=== PATIENT | male | born 1985 | race Caucasian/White ===

== ENCOUNTER 2024-10-06 04:10 | Emergency (ER) | payer OTHER, SELFPAY ==
[2024-10-06 04:11] VITALS: BP 133/90
[2024-10-06 04:33] LABS: % Basophils 0.5 % (0-2); % Eosinophils 0.8 % (0-6); % Immature Granulocytes 1.4 % (0-0.5); % Monocytes 6.1 % (1.7-9.3); % Neutrophils 67.2 % (42.2-75.2); Absolute Basophils 0.1 10^3/uL (0-0.2); Absolute Eosinophils 0.1 10^3/uL (0-0.7); Absolute Immature Granulocytes 0.2 10^3/uL (0-0.05); Absolute Lymphocytes 3.1 10^3/uL (1.2-3.4); Absolute Monocytes 0.8 10^3/uL (0.1-0.6); Absolute Neutrophils 8.8 10^3/uL (1.4-6.5); Hematocrit 44.6 % (39.0-52.0); Hemoglobin 15.7 g/dL (13.0-18.0); Mean Corp Hgb Conc. 35.2 g/dL (33.0-37.0); Mean Corpuscular Hgb 32.6 pg (27.0-31.0); Mean Corpuscular Volume 92.7 fL (80.0-94.0); Mean Platelet Volume 9.7 fL (7.4-10.4); Nucleated Red Blood Cells % 0 % (-); Platelet Count 348 10^3/uL (130-400); Red Blood Cell Count 4.81 10^6/uL (4.70-6.10); Red Cell Dist. Width 11.9 % (11.5-14.5); White Blood Cell Count 13.1 10^3/uL (4.8-10.8)
[2024-10-06 04:52] LABS: ALT (SGPT) 66 U/L (0-50); AST (SGOT) 32 U/L (17-59); Albumin 5.1 g/dl (3.5-5.0); Alkaline Phosphatase 39 U/L (38-126); Blood Urea Nitrogen 17 mg/dl (9-20); Calcium 9.6 mg/dl (8.4-10.2); Carbon Dioxide 25 mmol/L (22-30); Chloride 102 mmol/L (98-107); Glucose 102 mg/dl (70-99); Potassium 4.3 mmol/L (3.5-5.1); Sodium 140 mmol/L (135-145); Total Protein 7.9 g/dl (6.3-8.2); eGFR > 60.00
[2024-10-06 07:47] VITALS: BP 126/81
--- NOTE | 2024-10-06 08:18 | ED.GENMED ---
History of Present Illness
General
Chief Complaint: Dizziness
Source: patient
Time Seen by Provider: 10/06/24 07:56
History of Present Illness
History of Present Illness:
39-year-old male with no significant past medical history presenting to the emergency department for evaluation of a constant sensation of lightheadedness that has been ongoing for about 2 to 3 weeks, described to be as if he were going from a
sitting to a standing position although notes the symptoms do not seem to worsen when he does move or change position, associated with an intermittent tingling sensation to his bilateral upper extremities. Patient notes that 2 to 3 weeks ago he had
the flu however notes he had the symptoms just prior to onset of his flulike symptoms. Denies any headaches, visual changes, weakness or numbness, chest pain or shortness of breath, abdominal pain, nausea vomiting or diarrhea. Denies any history
of similar. Also denying any vertigo or tinnitus.
Past History
Past History
ED Past Medical History: None
ED Past Surgical History: None
Social History
Tobacco: Smoker
Alcohol: Occasional
Drug: None
Personal: Single
Living: with family
Employment: Employed
Review of Systems
Review of Systems
All Other Systems: ROS reviewed and negative except as documented in HPI and ROS
Phy Exam
Physical Exam
Physical Exam:
GENERAL: Alert , in no apparent distress
HEAD: Normocephalic atraumatic
EYE: conjunctiva clear
NECK: Supple
ENT: o/p clr, mmm.
CARDIAC: Regular rate and rhythm, no murmur
LUNGS: Clear breath sounds bilaterally, no acute respiratory distress, no wheezes/rales/rhonchi
NEUROLOGICAL: Alert and oriented
SKIN: Warm and dry, skin intact.
MUSCULOSKELETAL: well perfused.
PSYCH: Normal and appropriate interaction.
Scores
Heart Failure Risk
Heart Failure Risk Score: Not Applicable
Heart Score for Chest Pain Patients
STEMI patient?: Not applicable
Withdrawal Assessment of Alcohol
Withdrawal Assessment Completed?: Not applicable
Course
Orders/Labs/Results
Orders:
Orders
10/06/24 04:16
ECG [Electrocardiogram (*1)] Urgent
Reason for Study: Vertigo / Dizzy
EKG- Treatment ONCE
10/06/24 04:25
Complete Blood Count/With Diff Urgent
Comprehensive Metabolic Panel Urgent
10/06/24 08:18
Add On- LAB Urgent
Tests Added?: troponin
Orthostatic VS- Treatment ONCE
0.9% Sodium Chloride 1000 ml [Nss] 1,000 ml IV BOLUS
Ondansetron Injectable [Zofran] 4 mg IV NOW STA
10/06/24 08:29
Troponin I Urgent
Comment: COULD NOT BE ADDED
Abnormal Lab Results
10/06/24
04:25
WBC 13.1 H 10^3/uL
(4.8-10.8)
MCH 32.6 H pg
(27.0-31.0)
Abs Immat Gran (auto) 0.2 H 10^3/uL
(0-0.05)
Absolute Neuts (auto) 8.8 H 10^3/uL
(1.4-6.5)
Absolute Monos (auto) 0.8 H 10^3/uL
(0.1-0.6)
Immature Gran % 1.4 H %
(0-0.5)
Glucose 102 H mg/dl
(70-99)
ALT 66 H U/L
(0-50)
Albumin 5.1 H g/dl
(3.5-5.0)
10/06/24 04:25
10/06/24 04:25
Vital Signs
Initial and Last Documented VS:
Initial Vital Signs
Temp Pulse Resp BP Pulse Ox
98.2 F 94 20 133/90 98
10/06/24 04:11 10/06/24 04:11 10/06/24 04:11 10/06/24 04:11 10/06/24 04:11
Last Documented Vital Signs
Temp Pulse Resp BP Pulse Ox
98.2 F 77 20 104/70 99
10/06/24 04:11 10/06/24 10:00 10/06/24 10:00 10/06/24 10:00 10/06/24 10:03
MDM/Problems Addressed
Differential Diagnosis Includes:
Orthostasis, cardiac dysrhythmia, electrolyte derangement, viral induced myocarditis, less concern for labyrinthitis or BPPV
MDM/Problems Addressed:
39-year-old male presenting to the emergency department for evaluation of a constant lightheadedness sensation, symptoms starting over the last few weeks, recent viral illness although notes he believes he had the symptoms prior to onset of the
virus. Notes associated mild nausea presently. Vital signs are stable, no evidence for bradycardia on telemetry and no hypotension. Labs were initiated on arrival which do show a mild leukocytosis and mild elevation of ALT. Possibly from recent
virus. Will check orthostatics, treat with normal saline and some Zofran. Keep on telemetry. Disposition pending.
*Pulse Oximetry
Patient hypoxic: no
*EKG
Interpreted by ED Provider?: Yes
Heart Rate: 86
Rate: normal
Rhythm: sinus
[place]: left axis deviation
*Football Scout Interpretation
Rate: normal
Rhythm: sinus
*Critical Care Note
Total Time (30-74mins, 75-104mins- exclusive of procedures): Not Applicable
Patient Management
Escalation/DeEscalation of care consider admission/obs:
Patient feeling better following fluids. Orthostatic vital signs noted. Completed fluids. Patient does not have a primary care provider. I offered him primary care provider referral line however patient declines. Information for cardiology was
provided. He is otherwise stable for discharge home and aware of return precautions
ED Attending Note
-
Portions of this chart may have been created with voice recognition software.� Occasional wrong word or��sound alike� substitutions may have occurred due to the inherent limitations of voice recognition software.
Discharge Plan
Departure
Patient Disposition: Home (Routine Discharge)
Date of Disposition: 10/06/24
Time of Disposition: 10:24
Patient with high blood pressure during this ER visit?: No
Discharge Problem:
Light-headedness
Instructions: Dizziness, Nonvertigo, (DC)
Referrals:
Dhruv Sylvester MD [Active] - (Cardiology - Call for appointment as needed)
NONE,* [Family Provider] -
Interventions
Interventions:
*Risk Screen - Suicide Last Done: 10/06/24 04:11
*General Assessment Last Done: 10/06/24 07:38
*Neglect/Abuse Screening Last Done: 10/06/24 04:11
ED- Fall Risk Assessment Last Done: 10/06/24 10:31
*ED COVID-19 Vaccine History Last Done: 10/06/24 07:38
*Nursing Disposition Last Done: 10/06/24 10:31
ED- Neurological Assessment Last Done: 10/06/24 07:37
ED- Cardiac Assessment Last Done: 10/06/24 10:31
ED Swallowing Screen Last Done: 10/06/24 07:37
Discharge Date and Time
Discharge Date/Time: 10/06/24 10:35
Print Language: [place]
[2024-10-06] MEDS: ZOFRAN 4 MG IV (08:27)
[2024-10-06] MEDS: NSS 1000 IV (08:27)
[2024-10-06 08:28] VITALS: BP 106/68; BP 107/65; BP 123/84; PULSE 75; PULSE 78; PULSE 85
[2024-10-06 09:19] LABS: Troponin I < 0.012 ng/ml
[2024-10-06 10:00] VITALS: BP 104/70
== END 2024-10-06 10:35 | disposition home or self-care (01) ==
LOC: EMR 04:10
PROVIDERS: Emergency Medicine; EMERGENCY PHYSICIAN Emergency Medicine
DX: R42 Dizziness and giddiness (principal); R20.2 Paresthesia of skin; F17.200 Nicotine dependence, unspecified, uncomplicated
CPT/HCPCS: 96374; 96361; 99284; 80053; 84484; 85025; 93005

== ENCOUNTER 2025-05-06 06:19 | Emergency (ER) | payer OTHER, SELFPAY ==
[2025-05-06] VITALS (7 sets, daily range): BP systolic 111–139; BP diastolic 68–85; PULSE 61–75
--- NOTE | 2025-05-06 07:04 | ED.GENMED ---
History of Present Illness
General
Chief Complaint: Chest Pain
Source: patient and family
Time Seen by Provider: 05/06/25 06:49
History of Present Illness
History of Present Illness:
39-year-old male with no significant past medical history presenting to the emergency department for evaluation of a multitude of symptoms including chest discomfort, lightheadedness, left-sided ear fullness, 'fuzzy vision' and intermittent nausea
with symptoms occurring at random times and lasting for minutes to hours with no exacerbating or alleviating factors. Patient states that about 7 months ago he was here at this facility for similar symptoms, symptoms ultimately went away on their
own, never followed up with anybody for further evaluation. Patient denies any fevers or recent illnesses, recent travel or recent antibiotics, abdominal pain, bowel changes or urinary symptoms. Family history was noted for patient's maternal
grandfather having CAD and atrial fibrillation. Patient is unsure of father's medical history. Social history noted for tobacco cessation about 7 months ago, alcohol cessation a year and a half ago. Denies any other substance use. Mother who is
with the patient states she was recently diagnosed with MGUS and is concerned that patient may be experiencing the same
Past History
Past History
ED Past Medical History: None
ED Past Surgical History: None
Social History
Tobacco: Former smoker
Alcohol: Former
Drug: None
Personal: Single
Living: with family
Employment: Employed
Review of Systems
Review of Systems
All Other Systems: ROS reviewed and negative except as documented in HPI and ROS
Phy Exam
Physical Exam
Physical Exam:
GENERAL: Alert , in no apparent distress
EYE: clear conjunctiva b/l
HEAD: NCAT
ENT: o/p clr, mmm.
CARDIAC: Regular rate and rhythm .
LUNGS: Clear breath sounds bilaterally, no acute respiratory distress, no wheezes/rales/rhonchi
ABDOMEN: Soft, without focal tenderness, no r/g, no cvat
NEUROLOGICAL: Alert and oriented
SKIN: Warm and dry, skin intact.
MUSCULOSKELETAL: well perfused.
PSYCH: Normal and appropriate interaction.
Scores
Heart Failure Risk
Heart Failure Risk Score: Not Applicable
Heart Score for Chest Pain Patients
STEMI patient?: No
History: Slightly or Non-Suspicious
ECG: Normal
Age: </= 45 years
Risk Factors: 1 or 2 Risk Factors
Troponin: </= Normal Limit
Heart Score for Chest Pain Patients: 1
Heart Score Risk: 2.5% MACE over next 6 weeks
Withdrawal Assessment of Alcohol
Withdrawal Assessment Completed?: Not applicable
Course
Orders/Labs/Results
Orders:
Orders
05/06/25 06:20
Electrocardiogram (*1) Urgent
Reason for Study: Chest Pain
05/06/25 06:21
EKG- Treatment ONCE
05/06/25 07:03
Orthostatic VS- Treatment ONCE
CR Chest - 2 Views Urgent
Comment:
Reason For Exam: chest discomfort
05/06/25 07:22
Complete Blood Count/With Diff Urgent
Comprehensive Metabolic Panel Urgent
TSH Reflex To Free T4 Urgent
Troponin I Urgent
Abnormal Lab Results
05/06/25
07:22
MCH 31.5 H pg
(27.0-31.0)
Absolute Monos (auto) 0.7 H 10^3/uL
(0.1-0.6)
Monocytes % 9.8 H %
(1.7-9.3)
Chloride 108 H mmol/L
(98-107)
Glucose 120 H mg/dl
(70-99)
Alkaline Phosphatase 32 L U/L
(38-126)
05/06/25 07:22
05/06/25 07:22
Vital Signs
Initial and Last Documented VS:
Initial Vital Signs
Temp Pulse Resp BP Pulse Ox
98.8 F 84 16 120/79 96
05/06/25 06:31 05/06/25 06:31 05/06/25 06:31 05/06/25 06:31 05/06/25 06:31
Last Documented Vital Signs
Temp Pulse Resp BP Pulse Ox
98.8 F 73 20 115/80 98
05/06/25 06:31 05/06/25 08:00 05/06/25 08:00 05/06/25 08:00 05/06/25 08:16
MDM/Problems Addressed
Differential Diagnosis Includes:
ACS
Valvular Dysfunction
Cardiac Arrhythmia
Thyroid Dysfunction
Electrolyte Imbalance
Orthostasis
Less concern for infectious etiology
Anxiety
MDM/Problems Addressed:
39-year-old male presenting to the ER for a multitude of symptoms that been ongoing for the last few weeks, similar a few months ago but without any specified etiology. Patient arrives hemodynamically stable and in no acute distress. EKG done in
triage shows no ischemic changes. Will check labs including thyroid studies as well as chest x-ray. Overall doubt emergent pathology but at this time no clear etiology for patient's symptoms. Anticipate patient will need further and continued
workup with primary care provider as an outpatient. Will also provide with information for cardiology.
*Radiology
Radiology exam reviewed: preliminary read by ED provider (Normal chest)
*Pulse Oximetry
SaO2: 96
Oxygen Mode of Delivery: Room air
Patient hypoxic: no
*EKG
Heart Rate: 80
Rate: normal
Rhythm: sinus
[place]: left axis deviation
Ischemia: no ischemia
*Collections Technician Interpretation
Rate: normal
Heart Rate: 80
Rhythm: sinus
*Critical Care Note
Total Time (30-74mins, 75-104mins- exclusive of procedures): Not Applicable
Data Reviewed
Review of Other/Old Records Reveals: Labs and Records
Patient Management
Escalation/DeEscalation of care consider admission/obs:
Patient's workup is unremarkable for any acute etiologies. At this time I do think it is reasonable for patient to be discharged home and follow-up as an outpatient. It was noted on last visit patient did not have a primary care provider and that
he wanted to follow-up with cardiology. He never so. Will refer to the chest pain hotline to ensure that patient is offered a close follow-up visit. Patient aware of return precautions to the emergency department.
ED Attending Note
-
Portions of this chart may have been created with voice recognition software.� Occasional wrong word or��sound alike� substitutions may have occurred due to the inherent limitations of voice recognition software.
Discharge Plan
Departure
Patient Disposition: Home (Routine Discharge)
Date of Disposition: 05/06/25
Time of Disposition: 08:48
Patient with high blood pressure during this ER visit?: No
Discharge Problem:
Chest pain, Lightheaded
Instructions: Chest Pain CBC Follow Up
Referrals:
NONE,* [Family Provider, Internal Medicine]
Stand Alone Forms: Return to Work
Interventions
Interventions:
*Risk Screen - Suicide Last Done: 05/06/25 06:31
*General Assessment Last Done: 05/06/25 07:13
*Neglect/Abuse Screening Last Done: 05/06/25 07:13
*ED- Fall Risk Assessment Last Done: 05/06/25 07:13
*ED COVID-19 Vaccine History Last Done: 05/06/25 07:13
*Nursing Disposition Last Done: 05/06/25 09:05
ED- Cardiac Assessment Last Done: 05/06/25 07:13
Discharge Date and Time
Discharge Date/Time: 05/06/25 09:06
Print Language: [place]
[2025-05-06 07:43] LABS: Hematocrit 43.9 % (39.0-52.0); Hemoglobin 15.0 g/dL (13.0-18.0); Mean Corp Hgb Conc. 34.2 g/dL (33.0-37.0); Mean Corpuscular Volume 92.2 fL (80.0-94.0); Nucleated Red Blood Cells % 0 % (-); Platelet Count 253 10^3/uL (130-400); Red Cell Dist. Width 11.7 % (11.5-14.5)
[2025-05-06 07:59] LABS: ALT (SGPT) 30 U/L (0-50); AST (SGOT) 23 U/L (17-59); Albumin 4.6 g/dl (3.5-5.0); Alkaline Phosphatase 32 U/L (38-126); Blood Urea Nitrogen 15 mg/dl (9-20); Calcium 10.0 mg/dl (8.4-10.2); Carbon Dioxide 28 mmol/L (22-30); Chloride 108 mmol/L (98-107); Glucose 120 mg/dl (70-99); Potassium 4.5 mmol/L (3.5-5.1); Sodium 140 mmol/L (135-145); Total Protein 6.7 g/dl (6.3-8.2); eGFR > 60.00
[2025-05-06 08:23] LABS: Troponin I < 0.012 ng/ml
== END 2025-05-06 09:06 | disposition home or self-care (01) ==
LOC: EMR 06:19
PROVIDERS: Physician Assistant Medical; Student in an Organized Health Care Education/Training Program; EMERGENCY PHYSICIAN Emergency Medicine
DX: R07.9 Chest pain, unspecified (principal); R42 Dizziness and giddiness; Z87.891 Personal history of nicotine dependence; Z82.49 Family history of ischemic heart disease and other diseases of the circulatory system
CPT/HCPCS: 99284; 71046; 80053; 84443; 84484; 85025; 93005

== ENCOUNTER → 2025-06-15 15:29 | Outpatient (REF) | payer OTHER, SELFPAY | LOC: HWRCS 15:29 | PROVIDERS: ATTENDING PHYSICIAN Internal Medicine Cardiovascular Disease | DX: R42 Dizziness and giddiness (principal); Z87.891 Personal history of nicotine dependence; R07.89 Other chest pain | CPT/HCPCS: 93306 ==